=== PATIENT | female | born 1940 | race Caucasian/White ===

== ENCOUNTER 2017-06-08 08:00 | Outpatient (CLI) | payer MEDICARE, OTHER | END 2017-06-08 08:01 | disposition home or self-care (01) | LOC: LAB.R 08:00 | PROVIDERS: ATTEND Family Medicine | DX: N39.0 Urinary tract infection, site not specified (principal) | CPT/HCPCS: 87086 ==

== ENCOUNTER 2017-06-22 14:12 | Outpatient (CLI) | payer MEDICARE, OTHER ==
[2017-06-22 13:23] LABS: BASOPHILS % (AUTO) 0.8 %; EOSINOPHILS # (AUTO) 0.1 10^3/uL (0.0-0.7); EOSINOPHILS % (AUTO) 1.4 %; HCT - HEMATOCRIT 41.1 % (37.0-47.0); LYMPHOCYTES # (AUTO) 2.6 10^3/uL (1.5-3.5); LYMPHOCYTES % (AUTO) 43.7 %; MEAN CORPUSCULAR HEMOGLOBIN 31.7 pg (27.0-31.0); MEAN CORPUSCULAR HGB CONC 34.2 g/dL (32.0-36.0); MEAN CORPUSCULAR VOLUME 92.8 fL (81.0-99.0); MEAN PLATELET VOLUME 8.4 fL (7.9-10.8); MONOCYTES # (AUTO) 0.4 10^3/uL (0.0-1.0); MONOCYTES % (AUTO) 6.6 %; NEUTROPHILS # (AUTO) 2.8 10^3/uL (1.5-6.6); NEUTROPHILS % (AUTO) 47.5 %; RED BLOOD COUNT 4.43 10^6/uL (4.20-5.40); RED CELL DISTRIBUTION WIDTH 13.6 % (12.0-15.0)
[2017-06-22 14:14] LABS: ALBUMIN/GLOBULIN RATIO 1.4 (1.0-2.2); BUN - BLOOD UREA NITROGEN 19 mg/dL (6-20); CALCIUM 9.9 mg/dL (8.5-10.3); CARBON DIOXIDE - CO2 23 mmol/L (21-32); CHLORIDE 106 mmol/L (101-111); CREATININE 1.1 mg/dL (0.4-1.0); GFR - MDRD 48 (>89); GLUCOSE 124 mg/dL (70-100); POTASSIUM 3.9 mmol/L (3.5-5.0); SODIUM 136 mmol/L (135-145); TOTAL PROTEIN 7.3 g/dL (6.7-8.2)
[2017-06-22 14:18] LABS: THYROID STIMULATING HORMONE 2.93 uIU/mL (0.34-5.60)
[2017-06-22 14:30] LABS: FOLATE 14.19 ng/mL (5.90 - >24.8)
== END 2017-06-22 14:13 | disposition home or self-care (01) ==
LOC: LAB.WCP 14:12
PROVIDERS: ATTEND Family Medicine
DX: G62.9 Polyneuropathy, unspecified (principal); Z13.29 Encounter for screening for other suspected endocrine disorder
CPT/HCPCS: 36415; 80053; 82607; 82746; 84443; 85025

== ENCOUNTER 2017-09-01 07:55 | Outpatient (CLI) | payer MEDICARE, OTHER | END 2017-09-01 07:56 | disposition home or self-care (01) | LOC: LAB.WCP 07:55 | PROVIDERS: ATTEND Family Medicine | DX: E53.8 Deficiency of other specified B group vitamins (principal) | CPT/HCPCS: 36415; 82607 ==

== ENCOUNTER 2018-10-11 14:22 | Outpatient (CLI) | payer MEDICARE, OTHER ==
--- NOTE | 2018-10-12 09:19 | DEXA Report ---
Reason: ASYMPTOMATIC POSTMENOPAUSAL STATUS Procedure Date: 10/11/2018 Accession Number: [id number] / [id number] Procedure: DEX - Dexa Spine and/or Hip CPT Code: FULL RESULT: EXAM: Dexa Spine and/or Hip DATE: 10/11/2018 4:16 PM CLINICAL HISTORY: ASYMPTOMATIC POSTMENOPAUSAL STATUS TECHNIQUE: Dual energy x-ray absorptiometry (DXA) was performed on a [employer] System. Regions measured are the AP Spine, femoral neck, and if needed forearm. COMPARISON: None. In accordance with the International Society for Clinical Densitometry (ISCD) guidelines, data from previous exams may be reanalyzed using current recommendations and techniques. This is done to allow a more accurate basis for comparison with the current study. FINDINGS: The data for the lumbar spine is as follows: BMD (g/cm/cm) T-SCORE Z-SCORE REGION L1 1.160 0.2 1.5 L2 1.176 -0.2 1.0 L3 1.262 0.5 1.7 L4 1.199 0.0 1.2 TOTAL 1.199 0.2 1.4 NOTE: All evaluable vertebrae are used for classification The data for the hip is as follows: BMD (g/cm/cm) T-SCORE Z-SCORE REGION Neck 0.760 -2.0 -0.3 TOTAL 0.719 -2.3 -0.8 NOTE: The femoral neck or total proximal femur, whichever is lowest, is used for classification. IMPRESSION: THE WHO CLASSIFICATION BASED ON THE INTERNATIONAL REFERENCE STANDARD IS OSTEOPENIA. THE FRACTURE RISK IS INCREASED. RECOMMENDATION: Patients with diagnosis of osteoporosis or osteopenia should have regular bone mineral density assessment. For those eligible for Medicare, routine testing is allowed once every 2 years. Testing frequency can be increased for patients who have rapidly progressing disease or for those who are receiving medical therapy to restore bone mass. COMMENT: World Health Organization (WHO) definitions for osteoporosis and osteopenia: NORMAL BMD: T-score at -1.0 or higher, fracture risk is low OSTEOPENIA BMD: T-score between -1.0 and -2.5, fracture risk is increased. OSTEOPOROSIS BMD: T-score at -2.5 or lower, fracture risk is high. National Osteoporosis Foundation recommends: 1. Obtain adequate dietary calcium (at least 1200 mg per day) and vitamin D (400-800 international units per day). 2. Participate, as appropriate, in regular weightbearing and muscle-strengthening exercise. 3. Avoid tobacco use and reduce alcohol and caffeine intake. 4. For more detailed information see the website at www.NOF.org.
== END 2018-10-11 14:23 | disposition home or self-care (01) ==
LOC: DI 14:22
PROVIDERS: ATTEND Family Medicine
DX: M85.88 Other specified disorders of bone density and structure, other site (principal)
CPT/HCPCS: 77080

== ENCOUNTER 2019-01-01 11:39 | Day surgery (SDC) | payer MEDICARE, OTHER ==
[2019-01-01] MEDS ORDERED: LACTATED RINGERS 1,000 ML IV ONE (12:05)
[2019-01-01] MEDS ORDERED: MIDAZOLAM 2 MG/2 ML VIAL IVP ONE (12:24)
[2019-01-01] MEDS ORDERED: fentaNYL 100 MCG/2 ML VIAL IVP ONE (12:24)
[2019-01-01 13:47] VITALS: BP 114/84
--- NOTE | 2019-01-01 15:53 | PROCEDURE REPORT ---
DATE OF SERVICE: 01/01/2019 Physician: Chuy Collier MD PREOPERATIVE DIAGNOSIS: Positive Cologuard. POSTOPERATIVE DIAGNOSIS: Three rectal polyps. INDICATIONS FOR PROCEDURE: Patient is a 78-year-old woman presenting to clinic with a positive Cologuard study, requesting followup colonoscopy. PROCEDURE IN DETAIL: The risks and benefits were explained to patient, and she agreed to the procedure. She was taken to the operating room, given sedation and a timeout was performed. Everyone in the room agreed to the procedure. We inserted a well-lubricated colonoscope into the anal cavity and advanced it to the cecum without difficulty. Prep was excellent. The appendiceal orifice and ileocecal valve were identified. The colon was insufflated with carbon dioxide and the scope was slowly withdrawn. All mucosal surfaces were identified. She was noted to have a few sigmoid diverticula and 3 rectal polyps, 2 very small ones, which were removed with the cold forceps without residual bleeding, and 1 fairly large one, probably about 1 cm, with a broad base that we did a submucosal lift on using saline before removing with a hot snare. All 3 polyps were sent to Pathology. The large rectal polyp was about 40 cm in, at the very top of the rectum. The residual biopsy site was examined and found to be without sign of perforation or bleeding. The scope was then completely withdrawn after retroflexion at the anal verge showing slightly enlarged internal hemorrhoids. Patient was then taken to recovery in stable condition. COMPLICATIONS: None. SPECIMENS: Three rectal polyps. PLAN: We will call the patient with pathology results and plan further treatment. TD: 01/01/2019 13:28 TESS
== END 2019-01-01 11:40 | disposition home or self-care (01) ==
LOC: SDS 11:39
PROVIDERS: ATTEND Surgery
PROC: 0DBP8ZZ Excision of Rectum, Via Natural or Artificial Opening Endoscopic (ICD-10-PCS; 2019-01-01)
PROC: 0DBP8ZZ Excision of Rectum, Via Natural or Artificial Opening Endoscopic (ICD-10-PCS; principal; 2019-01-01 13:00)
DX: D12.8 Benign neoplasm of rectum (principal); K57.30 Diverticulosis of large intestine without perforation or abscess without bleeding; R01.1 Cardiac murmur, unspecified; G62.9 Polyneuropathy, unspecified
CPT/HCPCS: 45380; 45385; J7120

== ENCOUNTER 2020-07-22 08:00 | Outpatient (CLI) | payer MEDICARE, OTHER ==
[2020-07-22 12:16] LABS: BASOPHILS % (AUTO) 0.6 %; EOSINOPHILS # (AUTO) 0.1 10^3/uL (0.0-0.7); EOSINOPHILS % (AUTO) 1.7 %; HGB - HEMOGLOBIN 13.3 g/dL (12.0-16.0); LYMPHOCYTES % (AUTO) 42.2 %; MEAN CORPUSCULAR HEMOGLOBIN 30.4 pg (27.0-31.0); MEAN CORPUSCULAR HGB CONC 32.1 g/dL (32.0-36.0); MEAN CORPUSCULAR VOLUME 94.5 fL (81.0-99.0); MEAN PLATELET VOLUME 10.1 fL (7.9-10.8); MONOCYTES # (AUTO) 0.5 10^3/uL (0.0-1.0); MONOCYTES % (AUTO) 7.3 %; NEUTROPHILS # (AUTO) 3.4 10^3/uL (1.5-6.6); NEUTROPHILS % (AUTO) 47.8 %; PLT - PLATELET COUNT 231 10^3/uL (130-450); RED BLOOD COUNT 4.38 10^6/uL (4.20-5.40); RED CELL DISTRIBUTION WIDTH 13.3 % (12.0-15.0); WHITE BLOOD COUNT 7.1 x10^3/uL (4.8-10.8)
[2020-07-22 12:37] LABS: ALBUMIN 4.2 g/dL (3.2-5.5); ALBUMIN/GLOBULIN RATIO 1.1 (1.0-2.2); ALKALINE PHOSPHATASE 83 IU/L (42-121); ALT ALANINE AMINOTRANSFERASE 14 IU/L (10-60); AST ASPARTATE AMINOTRANSFERASE 15 IU/L (10-42); BILIRUBIN,TOTAL 0.8 mg/dL (0.2-1.0); BUN - BLOOD UREA NITROGEN 23 mg/dL (6-20); CARBON DIOXIDE - CO2 27 mmol/L (21-32); CHLORIDE 105 mmol/L (101-111); CHOL/HDL RATIO 2.8 (<4.4); CHOLESTEROL 242 mg/dL; CREATININE 1.2 mg/dL (0.4-1.0); GLUCOSE 121 mg/dL (70-100); HDL CHOLESTEROL 85 mg/dL; LDL CHOLESTEROL,CALCULATED 130 mg/dL; LDL/HDL RATIO 1.5 (<4.4); SODIUM 140 mmol/L (135-145); TOTAL PROTEIN 7.9 g/dL (6.7-8.2); VLDL CHOLESTEROL 27 mg/dL
== END 2020-07-22 23:59 | disposition home or self-care (01) ==
LOC: LAB.WCP 08:00
PROVIDERS: ATTEND Internal Medicine
DX: G62.9 Polyneuropathy, unspecified (principal)
CPT/HCPCS: 36415; 80053; 80061; 81599; 82607; 83036; 83721; 84443; 85025; 86334

== ENCOUNTER 2020-08-03 07:53 | Outpatient (CLI) | payer MEDICARE, OTHER ==
[2020-08-05 23:42] LABS: ABNORMAL PROTEIN BAND 1 0.6 g/dL (NONE DETECTED); ALBUMIN 4.1 g/dL (3.8-4.8); ALPHA 1 GLOBULIN 0.4 g/dL (0.2-0.3); ALPHA 2 GLOBULIN 0.8 g/dL (0.5-0.9); BETA 1 GLOBULIN 0.4 g/dL (0.4-0.6); BETA 2 GLOBULIN 0.3 g/dL (0.2-0.5); GAMMA GLOBULIN 1.3 g/dL (0.8-1.7)
== END 2020-08-03 23:59 | disposition home or self-care (01) ==
LOC: LAB.WCP 07:53
PROVIDERS: ATTEND Internal Medicine
DX: E83.52 Hypercalcemia (principal)
CPT/HCPCS: 36415; 83970; 84155; 84165

== ENCOUNTER 2020-08-13 10:14 | Outpatient (CLI) | payer MEDICARE, OTHER ==
--- NOTE | 2020-08-14 08:56 | Mammography Report ---
BILATERAL DIGITAL SCREENING MAMMOGRAM 3D/2D: 08/13/2020 CLINICAL: Baseline exam. Routine screening. No prior exams were available for comparison. The tissue of both breasts is predominantly fatty. There are benign calcifications in both breasts. No significant masses, calcifications, or other findings are seen in either breast. IMPRESSION: BENIGN There is no mammographic evidence of malignancy. A 1 year screening mammogram is recommended. This exam was interpreted at Station ID: [id number]. NOTE: For mammograms, a report in lay terms will be sent to the patient. Approximately 15% of breast malignancies will not be visualized mammographically. In the management of a palpable breast mass, a negative mammogram must not discourage biopsy of a clinically suspicious lesion. Electronically Signed By: Armando Pittman acr/penrad:08/13/2020 11:03:56 ACR BI-RADS Category 2: Benign Finding(s) 3342F PARENCHYMAL PATTERN: (F) - The breast(s) demonstrate(s) diffuse fatty replacement. BI-RADS CATEGORY: (2) - 2 RECOMMENDATION: (ANNUAL) - Recommend routine annual screening mammography. [id number] 1 year screening LATERALITY: (B)
== END 2020-08-13 10:15 | disposition home or self-care (01) ==
LOC: DI.N 10:14
PROVIDERS: ATTEND Internal Medicine
DX: Z12.31 Encounter for screening mammogram for malignant neoplasm of breast (principal)

== ENCOUNTER 2020-08-13 20:00 | Outpatient (CLI) | payer MEDICARE, OTHER | END 2020-08-13 23:59 | disposition home or self-care (01) | LOC: LAB.R 20:00 | PROVIDERS: ATTEND Internal Medicine | DX: E21.0 Primary hyperparathyroidism (principal) | CPT/HCPCS: 82340 ==

== ENCOUNTER 2020-10-28 14:11 | Outpatient (CLI) | payer MEDICARE, OTHER ==
--- NOTE | 2020-10-29 15:31 | DEXA Report ---
PROCEDURE: Dexa Spine and/or Hip INDICATIONS: POSTMENOPAUSAL STATUS TECHNIQUE: Dual energy x-ray absorptiometry (DXA) was performed on a [employer] System. Regions measur ed are the AP Spine, femoral neck, and if needed forearm. COMPARISON: None. FINDINGS: Lumbar Spine: Bone Mineral Density 1.214 g/cm/cm,T score 0.3, compared to 0.2 Left Hip: Bone Mineral Density 0.710 g/cm/cm,T score -2.4, compared to -2.3 Left Femoral Neck: Bone Mineral Density 0.729 g/cm/cm, T score -2.2, compared to -2.0 (T score greater or equal to -1.0: NORMAL) (T score from -1.1 to -2.4: OSTEOPENIA) (T score less than or equal to -2.5 to: OSTEOPOROSIS) Impression: Severe osteopenia/minimal osteoporosis within the left hip and femoral neck, progressive compared to prior exam. Patients with diagnosis of osteoporosis or osteopenia should have regular bone mineral density assess ment. For those eligible for Medicare, routine testing is allowed once every 2 years. Testing frequ ency can be increased for patients who have rapidly progressing disease or for those who are receivin g medical therapy to restore bone mass. Reviewed by: Tayler Murphy MD on 10/29/2020 3:29 PM PST Approved by: Tayler Murphy MD on 10/29/2020 3:29 PM PST Station ID: [id number]
== END 2020-10-28 14:12 | disposition home or self-care (01) ==
LOC: DI 14:11
PROVIDERS: ATTEND Internal Medicine
DX: M85.89 Other specified disorders of bone density and structure, multiple sites (principal); E21.0 Primary hyperparathyroidism

== ENCOUNTER 2021-01-08 08:00 | Outpatient (CLI) | payer MEDICARE, OTHER ==
[2021-01-08 13:03] LABS: ALBUMIN/GLOBULIN RATIO 1.1 (1.0-2.2); BILIRUBIN,TOTAL 0.7 mg/dL (0.2-1.0); CALCIUM 11.1 mg/dL (8.5-10.3); TOTAL PROTEIN 7.6 g/dL (6.7-8.2)
== END 2021-01-08 23:59 | disposition home or self-care (01) ==
LOC: LAB.WCP 08:00
PROVIDERS: ATTEND Internal Medicine
DX: E21.0 Primary hyperparathyroidism (principal)
CPT/HCPCS: 36415; 80053; 83970

== ENCOUNTER 2021-04-22 08:00 | Outpatient (CLI) | payer MEDICARE, OTHER ==
[2021-04-22 18:05] LABS: ALBUMIN 3.6 g/dL (3.2-5.5); ALBUMIN/GLOBULIN RATIO 0.9 (1.0-2.2); BILIRUBIN,TOTAL 0.8 mg/dL (0.2-1.0); CALCIUM 11.2 mg/dL (8.5-10.3); POTASSIUM 4.1 mmol/L (3.5-5.0); TOTAL PROTEIN 7.4 g/dL (6.7-8.2)
[2021-04-22 18:13] LABS: THYROID STIMULATING HORMONE 2.19 uIU/mL (0.34-5.60)
== END 2021-04-22 23:59 | disposition home or self-care (01) ==
LOC: LAB.WCP 08:00
PROVIDERS: ATTEND Internal Medicine
DX: E21.0 Primary hyperparathyroidism (principal)
CPT/HCPCS: 36415; 80053; 83970; 84443

== ENCOUNTER 2021-07-23 08:00 | Outpatient (CLI) | payer MEDICARE, OTHER ==
[2021-07-23 12:46] LABS: BASOPHILS # (AUTO) 0.1 10^3/uL (0.0-0.1); BASOPHILS % (AUTO) 0.6 %; EOSINOPHILS # (AUTO) 0.1 10^3/uL (0.0-0.7); EOSINOPHILS % (AUTO) 0.9 %; HGB - HEMOGLOBIN 10.5 g/dL (12.0-16.0); LYMPHOCYTES # (AUTO) 2.3 10^3/uL (1.5-3.5); LYMPHOCYTES % (AUTO) 23.3 %; MEAN CORPUSCULAR HEMOGLOBIN 26.6 pg (27.0-31.0); MEAN CORPUSCULAR HGB CONC 30.9 g/dL (32.0-36.0); MEAN CORPUSCULAR VOLUME 86.1 fL (81.0-99.0); MEAN PLATELET VOLUME 9.6 fL (7.9-10.8); MONOCYTES # (AUTO) 0.7 10^3/uL (0.0-1.0); MONOCYTES % (AUTO) 6.7 %; NEUTROPHILS # (AUTO) 6.7 10^3/uL (1.5-6.6); NEUTROPHILS % (AUTO) 68.2 %; PLT - PLATELET COUNT 299 10^3/uL (130-450); RED BLOOD COUNT 3.95 10^6/uL (4.20-5.40); RED CELL DISTRIBUTION WIDTH 15.4 % (12.0-15.0); WHITE BLOOD COUNT 9.8 x10^3/uL (4.8-10.8)
[2021-07-23 12:59] LABS: ALBUMIN 3.7 g/dL (3.2-5.5); ALBUMIN/GLOBULIN RATIO 0.9 (1.0-2.2); ALKALINE PHOSPHATASE 62 IU/L (42-121); ALT ALANINE AMINOTRANSFERASE < 10 IU/L (10-60); AST ASPARTATE AMINOTRANSFERASE 13 IU/L (10-42); BILIRUBIN,TOTAL 0.5 mg/dL (0.2-1.0); BUN - BLOOD UREA NITROGEN 17 mg/dL (6-20); CALCIUM 9.6 mg/dL (8.5-10.3); CARBON DIOXIDE - CO2 25 mmol/L (21-32); CHLORIDE 102 mmol/L (101-111); CREATININE 0.9 mg/dL (0.4-1.0); GFR - MDRD 60 (>89); GLUCOSE 212 mg/dL (70-100); POTASSIUM 4.1 mmol/L (3.5-5.0); SODIUM 137 mmol/L (135-145); TOTAL PROTEIN 7.7 g/dL (6.7-8.2)
[2021-07-23 13:12] LABS: THYROID STIMULATING HORMONE 2.86 uIU/mL (0.34-5.60)
[2021-07-23 15:41] LABS: ESTIMATED AVERAGE GLUCOSE 143 mg/dL (70-100); HEMOGLOBIN A1c% 6.6 % (4.27-6.07)
== END 2021-07-23 23:59 | disposition home or self-care (01) ==
LOC: LAB.WCP 08:00
PROVIDERS: ATTEND Internal Medicine
DX: D47.2 Monoclonal gammopathy (principal); R73.03 Prediabetes; E21.0 Primary hyperparathyroidism
CPT/HCPCS: 36415; 80053; 81599; 83036; 83970; 84155; 84165; 84443; 85025; 86334

== ENCOUNTER 2022-05-10 10:51 | Emergency (ER) | payer MEDICARE, OTHER ==
[2022-05-10 11:15] LABS: BASOPHILS # (AUTO) 0.1 10^3/uL (0.0-0.1); BASOPHILS % (AUTO) 0.6 %; EOSINOPHILS # (AUTO) 0.2 10^3/uL (0.0-0.7); EOSINOPHILS % (AUTO) 1.3 %; HCT - HEMATOCRIT 31.8 % (37.0-47.0); LYMPHOCYTES # (AUTO) 2.6 10^3/uL (1.5-3.5); MEAN CORPUSCULAR HEMOGLOBIN 25.2 pg (27.0-31.0); MEAN CORPUSCULAR HGB CONC 31.4 g/dL (32.0-36.0); MEAN CORPUSCULAR VOLUME 80.1 fL (81.0-99.0); MEAN PLATELET VOLUME 9.1 fL (7.9-10.8); MONOCYTES # (AUTO) 0.8 10^3/uL (0.0-1.0); NEUTROPHILS # (AUTO) 11.7 10^3/uL (1.5-6.6); NEUTROPHILS % (AUTO) 75.5 %; PLT - PLATELET COUNT 377 10^3/uL (130-450); RED BLOOD COUNT 3.97 10^6/uL (4.20-5.40); RED CELL DISTRIBUTION WIDTH 16.8 % (12.0-15.0); WHITE BLOOD COUNT 15.5 x10^3/uL (4.8-10.8)
[2022-05-10 11:30] LABS: ALBUMIN 3.5 g/dL (3.2-5.5); ALBUMIN/GLOBULIN RATIO 0.9 (1.0-2.2); BILIRUBIN,TOTAL 0.5 mg/dL (0.2-1.0); CALCIUM 9.8 mg/dL (8.5-10.3); CREATININE 0.9 mg/dL (0.4-1.0); POTASSIUM 3.9 mmol/L (3.5-5.0); TOTAL PROTEIN 7.6 g/dL (6.7-8.2)
--- NOTE | 2022-05-10 11:52 | XRAY Report ---
PROCEDURE: Chest 1 View X-Ray INDICATIONS: Chest pain TECHNIQUE: One view of the chest was acquired. COMPARISON: None FINDINGS: Surgical changes and devices: None. Lungs and pleura: Left perihilar mass. Additional areas of suspected atelectasis. Elevation of left Mediastinum: Heart size is within normal limits. Bones and chest wall: No suspicious bony lesions. Overlying soft tissues appear unremarkable. IMPRESSION: Left perihilar mass with hilum overlay sign. Further evaluation is recommended with chest CT with con trast. Reviewed by: Fercho Morales MD on 05/10/2022 11:51 AM PDT Approved by: Fercho Morales MD on 05/10/2022 11:51 AM PDT Station ID: [id number]
--- NOTE | 2022-05-10 12:26 | ED Physician Documentation ---
PD HPI CHEST PAIN - Stated complaint Stated Complaint: CHEST PAIN/SOA - Chief complaint Chief Complaint: Critical Care - History obtained from History obtained from: Patient - Additional information Additional information: This is a angélica and previously very healthy 82-year-old woman, never smoker who presents with progressive shortness of breath on exertion that is probably been going on in the range of 6 months but definitely worsening. She had COVID a couple of months ago but the current symptoms predated that. Today was the worst. She is also had some episodic nonexertional chest pressure lasting 30 minutes a time over the last couple of months. She denies pedal edema or calf pain. Review of Systems Ten Systems: 10 systems reviewed and negative Constitutional: denies: Fever, Chills Cardiac: reports: Chest pain / pressure. denies: Palpitations, Pedal edema, Calf pain Respiratory: reports: Dyspnea, Cough. denies: Hemoptysis, Wheezing PD PAST MEDICAL HISTORY - Past Medical History Cardiovascular: None Respiratory: None Endocrine/Autoimmune: None GI: None : None HEENT: None Psych: None Musculoskeletal: None Derm: None - Past Surgical History General:  /[employer]: Hysterectomy HEENT: Cataracts - Present Medications Home Medications: Ambulatory Orders Medication Instructions Recorded Confirmed Calcium Carbonate [Calcium] 600 mg PO 12/31/18 Multivitamin [Multivitamins] 1 each PO 12/31/18 - Allergies Allergies/Adverse Reactions: Allergies Allergy/AdvReac Type Severity Reaction Status Date / Time No Known Drug Allergies Allergy Verified 05/10/22 10:59 PD ED PE NORMAL - Vitals Vital signs reviewed: Yes - General General: Alert and oriented X 3, No acute distress - HEENT HEENT: PERRL, EOMI - Neck Neck: Supple, no meningeal sign, No bony TTP - Cardiac Cardiac: Other (Mild resting tachycardia without murmur) - Respiratory Respiratory: No respiratory distress, Other (Diminished at the left base) - Abdomen Abdomen: Normal bowel sounds, Soft, Non tender - Back Back: No CVA TTP, No spinal TTP - Derm Derm: Normal color, Warm and dry - Extremities Extremities: No edema, No calf tenderness / cord - Neuro Neuro: Alert and oriented X 3, Normal speech Results - Vitals Vitals: Vital Signs - 24 hr 05/10/22 05/10/22 10:55 12:59 Temperature 36.6 C Heart Rate 102 H 81 Respiratory 16 27 H Rate Blood Pressure 126/75 138/71 H O2 Saturation 98 100 Oxygen O2 Source Room air - EKG (time done) 1054 Rate: Rate (enter#) (99) Rhythm: Sinus tachycardia, LAE [place]: Normal Intervals: Normal PA QRS: Normal Ischemia: Non specific changes - Labs Labs: Laboratory Tests 05/10/22 05/10/22 05/10/22 11:09 11:09 11:09 WBC 15.5 H RBC 3.97 L Hgb 10.0 L Hct 31.8 L MCV 80.1 L MCH 25.2 L MCHC 31.4 L RDW 16.8 H Plt Count 377 MPV 9.1 Neut # (Auto) 11.7 H Lymph # (Auto) 2.6 Mcclain # (Auto) 0.8 Eos # (Auto) 0.2 Baso # (Auto) 0.1 Absolute Nucleated RBC 0.00 Nucleated RBC % 0.0 Sodium 132 L Potassium 3.9 Chloride 98 L Carbon Dioxide 22 Anion Gap 12.0 BUN 16 Creatinine 0.9 Estimated GFR (MDRD) 60 L Glucose 387 H Calcium 9.8 Total Bilirubin 0.5 AST 14 ALT 10 Alkaline Phosphatase 72 Troponin I High Sens 2.8 Total Protein 7.6 Albumin 3.5 Globulin 4.1 Albumin/Globulin Ratio 0.9 L Lipase 23 - Rads (name of study) Single view chest x-ray demonstrates left hilar mass needing further imaging Radiology: EMP read contemporaneously PD MEDICAL DECISION MAKING - ED course ED course: 82-year-old woman who presents with progressive dyspnea on exertion and some episodes of chest pressure that are not typical. Work-up here demonstrates an abnormal chest x-ray with a negative cardiac work-up and no evidence of ischemia and negative biomarkers. The x-ray was followed by a CT showing a large necrotic mass, she will need a subsequent biopsy of this and I emailed her primary care physician to expedite her work-up. Departure - Departure Disposition: 01 Home, Self Care Clinical Impression: Dyspnea, Lung mass Condition: Good Record reviewed to determine appropriate education?: Yes Comments: As discussed you have a fairly large mass in your chest which I suspect is ca using all of your symptoms. I have emailed Dr. Mireles to get him in the loop, recommend he refer you for interventional guided biopsy and subsequent probable Oncology referral. Return for new or worsening symptoms. Discharge Date/Time: 05/10/22 15:12
[2022-05-10 13:04] VITALS: BP 138/71
--- NOTE | 2022-05-10 13:36 | CT Report ---
PROCEDURE: CHEST W INDICATIONS: abn cxr, dyspnea CONTRAST: IV CONTRAST: Optiray 320 ml: 100 PO CONTRAST: *NO PO CONTRAST TECHNIQUE: After the administration of intravenous contrast, 1 mm axial images were acquired from the pulmonary apices through the posterior costophrenic angles. Axial 5 mm soft tissue kernel reconstructions were performed as well as 8 mm axial MIP and coronal and sagittal 5 mm reformations. For radiation dose reduction, the following was used: automated exposure control, adjustment of mA and/or kV according to patient size. COMPARISON: CXR earlier today. FINDINGS: Image quality: Excellent. Lungs and pleura: Mild opacity in the left upper lobe near the mediastinal mass. Central airways are clear. No pleural effusions or pneumothorax. Mediastinum: Left upper mediastinum enhancing mass with central hypodensity measuring 8.8 x 8.1 cm, (3/). Osseous erosion at the left manubrium and 1-2nd ribs. The left subclavian vein appears compre ssed are attenuated by the mass. The mass abuts the left superior pulmonary vein, pulmonary arterial trunk and aortic arch. There is mass effect on the mediastinum. The lesion extends anteriorly at the midportion towards the extrathoracic thoracic space, (3/). Left hilar node measuring 1 cm short axi s diameter, (3/). Heart size is normal. Coronary artery calcifications. No pericardial effusion. No mediastinal or hil ar adenopathy by size criteria. Thoracic aorta and central pulmonary arteries are normal in size. E sophagus is normal in caliber. No hiatal hernia. Bones and chest wall: Osseous erosions as described above. Degenerative disc disease. No vertebral shmuel dy compression fractures. No axillary or supraclavicular adenopathy by size criteria. Tiny right thy roid nodule. Abdomen: Visualized upper abdominal solid organs appear normal. Probable hepatic steatosis. Upper a bdominal bowel loops are normal in caliber. IMPRESSION: 1. 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 There is central hypodensity most likely due t o necrosis. The lesion erodes into the left manubrium and first and second ribs. Differential diagnos is includes teratoma/term cell tumor, lymphoma, thymoma or other malignant neoplasm. -Recommend ultrasound-guided or CT-guided biopsy. 2. Small left hilar lymph node is indeterminate. -Consider PET/CT for further evaluation. Reviewed by: Matt Blake MD on 05/10/2022 1:35 PM PDT Approved by: Matt Blake MD on 05/10/2022 1:35 PM PDT Station ID: [id number]
== END 2022-05-10 15:12 | disposition home or self-care (01) ==
LOC: ED 10:51
DX: R06.00 Dyspnea, unspecified (principal); R91.8 Other nonspecific abnormal finding of lung field
CPT/HCPCS: 36415; 71045; 71260; 80053; 83690; 84484; 85025; 93005; 99284; Q9967

== ENCOUNTER 2022-05-19 08:14 | Outpatient (CLI) | payer MEDICARE, OTHER ==
[2022-05-19] MEDS ORDERED: LACTATED RINGERS 1,000 ML IV ONE ×2 (08:18→09:37)
[2022-05-19] MEDS ORDERED: lidocaine 1% 20 ML MDV ONE (08:34)
[2022-05-19] MEDS ORDERED: MIDAZOLAM 2 MG/2 ML VIAL ONE ×2 (09:10→09:11)
[2022-05-19] MEDS ORDERED: fentaNYL 100 MCG/2 ML VIAL ONE (09:10)
[2022-05-19] MEDS ORDERED: lidocaine 1% 20 ML MDV SUBQ ONE (09:45)
--- NOTE | 2022-05-19 10:13 | CT Report ---
PROCEDURE: LT LUNG BX PERC Sedation analgesia for minutes. INDICATIONS: MEDIASTINAL MASS TECHNIQUE: The indications, alternatives, benefits, risks, and possible complications of the procedure were comm unicated to the patient. Informed written consent from the patient was obtained and placed in the art. Continuous EKG and hemodynamic monitoring was started by trained personnel. For radiation dose reduction, the following was used: automated exposure control, adjustment of mA and/or kV according to patient size. The patient was brought to the CT suite and electrical apprentice spiral CT imaging was performed with localization g rid. The appropriate site for percutaneous access to the biopsy target was marked, was prepped and d raped sterilely, and was infused with local anaesthesia. Under CT guidance, a core biopsy trocar and needle set was advanced to the biopsy target, and specimen(s) were obtained. The trocar and needle were then removed, and the patient was sent for post-procedure monitoring. COMPARISON: None. FINDINGS: Biopsy site: Left anterior mediastinal lesion Needle: 20 gauge biopsy needle with introducer trocar. Number of passes: 4 Medications: 1% lidocaine for local anaesthesia. IV Fentanyl and Versed for conscious sedation for 15 minutes (see nursing record). Complications: None. IMPRESSION: Successful CT-guided biopsy of left anterior mediastinal lesion. Reviewed by: Lawrence Rice MD on 05/19/2022 10:11 AM PDT Approved by: Lawrence Rice MD on 05/19/2022 10:11 AM PDT Station ID: [id number]
[2022-05-19 11:46] VITALS: BP 114/70
== END 2022-05-19 08:15 | disposition home or self-care (01) ==
LOC: DI 08:14
PROVIDERS: ATTEND Internal Medicine
DX: C38.1 Malignant neoplasm of anterior mediastinum (principal)
CPT/HCPCS: 32408; J7120

== ENCOUNTER 2022-09-21 07:30 | Outpatient (CLI) | payer MEDICARE, OTHER ==
[2022-09-21 11:42] LABS: BASOPHILS # (AUTO) 0.1 10^3/uL (0.0-0.1); BASOPHILS % (AUTO) 0.8 %; EOSINOPHILS # (AUTO) 0.1 10^3/uL (0.0-0.7); EOSINOPHILS % (AUTO) 0.9 %; HCT - HEMATOCRIT 36.4 % (37.0-47.0); HGB - HEMOGLOBIN 11.6 g/dL (12.0-16.0); LYMPHOCYTES # (AUTO) 2.9 10^3/uL (1.5-3.5); LYMPHOCYTES % (AUTO) 32.5 %; MEAN CORPUSCULAR HEMOGLOBIN 30.1 pg (27.0-31.0); MEAN CORPUSCULAR HGB CONC 31.9 g/dL (32.0-36.0); MEAN CORPUSCULAR VOLUME 94.5 fL (81.0-99.0); MEAN PLATELET VOLUME 9.1 fL (7.9-10.8); MONOCYTES # (AUTO) 0.3 10^3/uL (0.0-1.0); MONOCYTES % (AUTO) 3.5 %; NEUTROPHILS # (AUTO) 5.5 10^3/uL (1.5-6.6); NEUTROPHILS % (AUTO) 62.1 %; PLT - PLATELET COUNT 225 10^3/uL (130-450); RED BLOOD COUNT 3.85 10^6/uL (4.20-5.40); RED CELL DISTRIBUTION WIDTH 18.9 % (12.0-15.0); WHITE BLOOD COUNT 8.9 x10^3/uL (4.8-10.8)
[2022-09-21 11:59] LABS: CREATININE,URINE 93.1 mg/dL; MICROALBUM/CREATININE RATIO,UR 8.6 ug/mg (<30.0); MICROALBUMIN,URINE 0.8 mg/dL (0-300.0)
[2022-09-21 12:29] LABS: ALBUMIN 4.3 g/dL (3.2-5.5); ALBUMIN/GLOBULIN RATIO 1.2 (1.0-2.2); CALCIUM 9.1 mg/dL (8.5-10.3); CREATININE 1.1 mg/dL (0.4-1.0); POTASSIUM 3.7 mmol/L (3.5-5.0); TOTAL PROTEIN 7.9 g/dL (6.7-8.2)
[2022-09-21 12:41] LABS: ESTIMATED AVERAGE GLUCOSE 123 mg/dL (70-100); HEMOGLOBIN A1c% 5.9 % (4.27-6.07)
== END 2022-09-21 07:31 | disposition home or self-care (01) ==
LOC: LAB.N 07:30
PROVIDERS: ATTEND Internal Medicine
DX: C34.90 Malignant neoplasm of unspecified part of unspecified bronchus or lung (principal); E11.42 Type 2 diabetes mellitus with diabetic polyneuropathy
CPT/HCPCS: 36415; 80053; 82043; 82570; 83036; 85025

== ENCOUNTER 2023-01-18 08:15 | Outpatient (CLI) | payer MEDICARE, OTHER ==
[2023-01-18 12:15] LABS: CHOL/HDL RATIO 2.7 (<4.4); CHOLESTEROL 173 mg/dL; HDL CHOLESTEROL 64 mg/dL; LDL CHOLESTEROL,CALCULATED 93 mg/dL; LDL/HDL RATIO 1.5 (<4.4); TRIGLYCERIDES 79 mg/dL; VLDL CHOLESTEROL 16 mg/dL
[2023-01-18 12:24] LABS: ESTIMATED AVERAGE GLUCOSE 123 mg/dL (70-100); HEMOGLOBIN A1c% 5.9 % (4.27-6.07)
[2023-01-18 12:31] LABS: CREATININE,URINE 139.1 mg/dL; MICROALBUM/CREATININE RATIO,UR 121.5 ug/mg (<30.0); MICROALBUMIN,URINE 16.9 mg/dL (0-300.0)
[2023-01-18 12:35] LABS: THYROID STIMULATING HORMONE 3.54 uIU/mL (0.34-5.60)
== END 2023-01-18 08:16 | disposition home or self-care (01) ==
LOC: LAB.N 08:15
PROVIDERS: ATTEND Internal Medicine
DX: E11.40 Type 2 diabetes mellitus with diabetic neuropathy, unspecified (principal); I48.0 Paroxysmal atrial fibrillation
CPT/HCPCS: 36415; 80061; 82043; 82570; 83036; 83721; 84443

== ENCOUNTER 2023-07-03 07:04 | Outpatient (CLI) | payer MEDICARE, OTHER ==
[2023-07-03 12:33] LABS: BASOPHILS % (AUTO) 0.6 %; EOSINOPHILS # (AUTO) 0.2 10^3/uL (0.0-0.7); HCT - HEMATOCRIT 37.5 % (37.0-47.0); HGB - HEMOGLOBIN 11.6 g/dL (12.0-16.0); LYMPHOCYTES # (AUTO) 1.7 10^3/uL (1.5-3.5); LYMPHOCYTES % (AUTO) 25.7 %; MEAN CORPUSCULAR HEMOGLOBIN 26.7 pg (27.0-31.0); MEAN CORPUSCULAR HGB CONC 30.9 g/dL (32.0-36.0); MEAN CORPUSCULAR VOLUME 86.4 fL (81.0-99.0); MEAN PLATELET VOLUME 9.1 fL (7.9-10.8); MONOCYTES # (AUTO) 0.5 10^3/uL (0.0-1.0); MONOCYTES % (AUTO) 8.1 %; NEUTROPHILS # (AUTO) 4.1 10^3/uL (1.5-6.6); NEUTROPHILS % (AUTO) 62.1 %; PLT - PLATELET COUNT 229 10^3/uL (130-450); RED BLOOD COUNT 4.34 10^6/uL (4.20-5.40); RED CELL DISTRIBUTION WIDTH 17.2 % (12.0-15.0); WHITE BLOOD COUNT 6.6 x10^3/uL (4.8-10.8)
[2023-07-03 12:51] LABS: ESTIMATED AVERAGE GLUCOSE 140 mg/dL (70-100); HEMOGLOBIN A1c% 6.5 % (4.27-6.07)
[2023-07-03 12:55] LABS: ALBUMIN 4.2 g/dL (3.2-5.5); ALBUMIN/GLOBULIN RATIO 1.1 (1.0-2.2); BILIRUBIN,TOTAL 0.5 mg/dL (0.2-1.0); CALCIUM 9.6 mg/dL (8.5-10.3); POTASSIUM 3.9 mmol/L (3.5-4.5)
[2023-07-03 13:00] LABS: THYROID STIMULATING HORMONE 4.41 uIU/mL (0.34-5.60)
[2023-07-04 18:08] LABS: KAPPA FREE LT CHAINS SERUM 43.8 mg/L (3.3-19.4); LAMBDA FREE LT CHAINS SERUM 20.9 mg/L (5.7-26.3)
[2023-07-05 14:09] LABS: A/G RATIO 0.9 (0.7-1.7); ALBUMIN 3.4 g/dL (2.9-4.4); ALPHA-1-GLOBULIN 0.3 g/dL (0.0-0.4); BETA GLOBULIN 0.9 g/dL (0.7-1.3); GAMMA GLOBULIN 1.8 g/dL (0.4-1.8); GLOBULIN TOTAL 4.2 g/dL (2.2-3.9); IMMUNOGLOBULIN A (IGA) 96 mg/dL (64-422); IMMUNOGLOBULIN G (IGG) 1882 mg/dL (586-1602); IMMUNOGLOBULIN M (IGM) 56 mg/dL (26-217); M-SPIKE 0.6 g/dL (Not Observed); PROTEIN TOTAL 7.6 g/dL (6.0-8.5)
== END 2023-07-03 07:05 | disposition home or self-care (01) ==
LOC: LAB.N 07:04
PROVIDERS: ATTEND Internal Medicine
DX: E11.42 Type 2 diabetes mellitus with diabetic polyneuropathy (principal); D47.2 Monoclonal gammopathy; C34.90 Malignant neoplasm of unspecified part of unspecified bronchus or lung; I48.92 Unspecified atrial flutter
CPT/HCPCS: 36415; 80053; 82784; 83036; 83521; 84155; 84165; 84443; 85025; 86334

== ENCOUNTER 2023-12-29 07:14 | Outpatient (CLI) | payer MEDICARE, OTHER ==
[2023-12-29 12:06] LABS: BASOPHILS # (AUTO) 0.1 10^3/uL (0.0-0.1); EOSINOPHILS # (AUTO) 0.2 10^3/uL (0.0-0.7); HCT - HEMATOCRIT 39.5 % (37.0-47.0); HGB - HEMOGLOBIN 12.8 g/dL (12.0-16.0); LYMPHOCYTES # (AUTO) 1.7 10^3/uL (1.5-3.5); LYMPHOCYTES % (AUTO) 27.8 %; MEAN CORPUSCULAR HEMOGLOBIN 30.2 pg (27.0-31.0); MEAN CORPUSCULAR HGB CONC 32.4 g/dL (32.0-36.0); MEAN CORPUSCULAR VOLUME 93.2 fL (81.0-99.0); MEAN PLATELET VOLUME 9.1 fL (7.9-10.8); MONOCYTES # (AUTO) 0.4 10^3/uL (0.0-1.0); MONOCYTES % (AUTO) 7.3 %; NEUTROPHILS # (AUTO) 3.6 10^3/uL (1.5-6.6); NEUTROPHILS % (AUTO) 59.6 %; PLT - PLATELET COUNT 220 10^3/uL (130-450); RED BLOOD COUNT 4.24 10^6/uL (4.20-5.40); RED CELL DISTRIBUTION WIDTH 14.6 % (12.0-15.0)
[2023-12-29 12:37] LABS: ESTIMATED AVERAGE GLUCOSE 128 mg/dL (70-100); HEMOGLOBIN A1c% 6.1 % (4.27-6.07)
[2023-12-29 12:49] LABS: MICROALBUM/CREATININE RATIO,UR 22.2 ug/mg (<30.0); MICROALBUMIN,URINE 3.2 mg/dL
[2023-12-29 13:06] LABS: ALBUMIN 4.5 g/dL (3.2-5.5); ALBUMIN/GLOBULIN RATIO 1.3 (1.0-2.2); ALKALINE PHOSPHATASE 72 IU/L (42-121); ALT ALANINE AMINOTRANSFERASE 14 IU/L (10-60); AST ASPARTATE AMINOTRANSFERASE 15 IU/L (10-42); BILIRUBIN,TOTAL 0.6 mg/dL (0.2-1.0); BUN - BLOOD UREA NITROGEN 24 mg/dL (6-20); CARBON DIOXIDE - CO2 29 mmol/L (21-32); CHLORIDE 102 mmol/L (101-111); CHOL/HDL RATIO 2.7 (<4.4); CHOLESTEROL 251 mg/dL; CREATININE 1.3 mg/dL (0.6-1.3); GFR - MDRD 39 (>89); GLUCOSE 142 mg/dL (74-104); HDL CHOLESTEROL 93 mg/dL; LDL CHOLESTEROL,CALCULATED 137 mg/dL; LDL/HDL RATIO 1.5 (<4.4); SODIUM 137 mmol/L (135-145); TRIGLYCERIDES 105 mg/dL (48-352); VLDL CHOLESTEROL 21 mg/dL
== END 2023-12-29 07:15 | disposition home or self-care (01) ==
LOC: LAB.N 07:14
PROVIDERS: ATTEND Internal Medicine
DX: C34.90 Malignant neoplasm of unspecified part of unspecified bronchus or lung (principal); D47.2 Monoclonal gammopathy; E11.42 Type 2 diabetes mellitus with diabetic polyneuropathy
CPT/HCPCS: 36415; 80053; 80061; 82043; 82570; 82784; 83036; 83521; 83721; 84155; 84165; 85025; 86334

== ENCOUNTER 2024-01-04 09:51 | Outpatient (CLI) | payer MEDICARE, OTHER ==
--- NOTE | 2024-01-04 13:44 | XRAY Report ---
PROCEDURE: Knee Standing BL INDICATIONS: OSTEOARTHRITIS TECHNIQUE: 4 views of the knee COMPARISON: None. FINDINGS: Bones: No fractures or dislocations. No suspicious bony lesions. Moderate to severe tricompartmen sandi arthritic changes most severe in the right medial compartment. Periarticular osteophytes are pres ent. No distinct erosions. Soft tissues: Minimal bilateral knee joint effusion. No suspicious soft tissue calcifications or mas ses. 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 Reviewed by: Tayler Murphy MD on 01/04/2024 1:43 PM PDT Approved by: Tayler Murphy MD on 01/04/2024 1:43 PM PDT Station ID: [id number]
== END 2024-01-04 09:52 | disposition home or self-care (01) ==
LOC: DI 09:51
PROVIDERS: ATTEND Internal Medicine
DX: M17.0 Bilateral primary osteoarthritis of knee (principal)